=== PATIENT | female | born 1930 | race Caucasian/White ===

== ENCOUNTER 2018-09-13 13:09 | Emergency (ER) | payer MEDICARE, BC ==
--- OUTSIDE RECORDS SUMMARY | 2018-09-13 13:25 | XMS REPORT | Continuity of Care Document ---
:1930 External Reference #:[id number] Author Name JarrodJohn Care Team Providers Name Role Phone Isac Wright MD Primary Care Physician Unavailable Payers Date Identification Numbers Payment Provider Subscriber Effective: 1996 Policy Number: [id number] Medicare Tamy Ta PayID: [id number] [address] [place] [address] Effective: 2011 Policy Number: [id number] [employer]ets Tamy Ta PayID: [id number] [address] [address] [place] [address] Advance Directives Description No Information Available Problems Date Description Provider Status Onset: 11/02/2014 Headache Daily Tate M.D. Active Onset: 11/02/2014 Essential tremor Daily Tate M.D. Active Onset: 11/02/2014 Anxiety Daily Tate M.D. Active Onset: 09/14/2016 Unsteady gait Daily Tate M.D. Active Family History Date Family Member(s) Observation Comments General Cancer General Diabetes Father Cancer metastatic at diagnosis, ? type: age 69 Father due to Cancer () Mother Cancer colon - age 80 Mother due to Cancer () Siblings 1 age 92 Social History Type Date Description Comments Sex Unknown Marital Status Lives With Son Occupation Retired Tobacco Use Start: Unknown Never Smoked Cigarettes Smoking Status Reviewed: 09/13/18 Never Smoked Cigarettes ETOH Use Rarely consumes alcohol Tobacco Use Start: Unknown Patient has never smoked Recreational Drug Use Denies Drug Use Exercise Type/Frequency Exercises rarely Allergies, Adverse Reactions, Alerts Date Description Reaction Status Severity Comments 03/30/2014 Levaquin Urticaria Active 02/08/2015 Depakote Active Medications Medication Date Status Form Strength Qnty SIG Indications Ordering Provider Sertraline HCL 06/14 Active Tablets 50mg 30tab 1 by mouth F41.9 Elida s every day Juliet Lopez Atorvastatin Active Tablets 20mg 1 po qd Unknown Calcium /0000 Humalog Kwikpen Active Solution 100Unit/M As Andreea, /0000 Pen-Inject L directed, bar Chaney DO scale.. Lantus Solostar Active Solution 100Unit/M 20 units Andreea, /0000 Pen-Inject L at night DO Ritu Centrum Silver Active Tablets 1 by mouth Unknown /0000 every day Irbesartan Active Tablets 75mg 90tab 2 by mouth Unknown /0000 s every morning Amoxicillin Active Capsules 500mg 4 tablets Unknown /0000 1 hour before dental work Anoro Ellipta Active Aerosol 62.5-25mc 60uni 1 Unknown /0000 g/Inh ts inhalation daily Acetaminophen Active Tablets 500mg 2 tabs 3x Unknown /0000 a day as needed Eliquis Active Tablets 2.5mg 1 tablet Unknown /0000 by mouth twice a day. blood thinner. Vitamin D3 Adult Active Chewtabs 1000Unit 3 tabs Unknown Gummies /0000 daily Savision Active Capsules daily by Unknown /0000 mouth Glucose Active Chewtabs 4gm 2 chewtabs Unknown /0000 as needed hypoglycem ia Refresh Tears Active Solution 0.5% 3-4times Unknown /0000 daily as needed Systane Active Solution 0.4-0.3% apply Unknown /0000 twice daily as needed for dry eyes Sertraline HCL 03/29 Hx Tablets 25mg 30tab take 1 by F41.9 s mouth each John, - day M.D. 06/14 Sustane 06/21 Hx aplies to Daily . both eyes Bebeto, - at M.D. 02/20 bedtime. Clonazepam 05/17 Hx Tablets 0.5mg 60tab 1/2-1 tab R42 Daily Jimenez s by mouth Bebeto, - twice a M.D. 09/27 day directed Fluticasone 02/08 Hx Suspension 50mcg/Act 16gm 2 spray 784.0 Winnie each SYL Powell - nostril 04/16 Zonisamide 01/08 Hx Capsules 25mg 120ca 1-4 caps Daily Chi[place] ps by mouth Bebeto, - every M.D. 04/21 night directed Divalproex Sodium 11/[address] 250mg 90tab Patient is Daily Jimenez s currently Bebeto, - weaning M.D. 11/01 herself off medication due to hair loss.. Propranolol HCL 05/23 Hx Tablets 10mg 120ta Take Two Daily Jimenez bs Tablets By Bebeto, - Mouth M.D. 09/13 Morning, 1 Tablet AT Noon And 1 Tablet AT Dinner Selegiline HCL 02/08 Hx Tablets 5mg 180ta 1 tab by Daily Jimenez bs mouth Bebeto, - every M.D. 05/23 and at noon Carbidopa/Levodop 01/03 Hx Tablets 25-100mg 60tab 1/2 tab by Daily hatch han mouth Bebeto, - 2-3x/day M.D. 05/23 directed Divalproex Sodium 10/[address] 250mg 90tab 2-[address] s po qhs shelbi Tate, - directed M.D. 11/09 Selegiline HCL 10/04 Hx Capsules 5mg 60cap 1 cap by Elida s mouth q am John, - and noon M.D. 05/23 Lisinopril Hx Tablets 10mg 1 po qd - 11/30 Multaq Hx Tablets 400mg 1 po bid - 06/20 Warfarin Sodium Hx Tablets 2.5mg take 1 tab Unknown on - Wed,09/06 day,wednesday and 2 tabs on thee other days Diltiazem HCL ER 00 Hx Caps ER 120mg 1 po qd Unknown Coated 24HR - 04/21 Furosemide 00 Hx Tablets 20mg 1 po bid Unknown /0000 - 06/20 [address] 40mg 1 po qd.. Unknown /0000 - 11/30 Hydrochlorothiazi 00 Hx Tablets 12.5mg 90tab 1 by mouth Unknown de /0000 s every day - 11/01 Calcium 600+D 00 Hx Tablets 600-400mg 60tab 1 by mouth Unknown High Potency /0000 -Unit s qd - 11/01 Savision 00 Hx Tablets 1 by mouth Unknown /0000 every day - 09/13 Prolia Hx Solution 60mg/ml 60 mg sc Unknown /0000 [id number] - nt know if 12/27 she want to do this anymore Vitamin D 00 Hx Tablets 400Unit every day Unknown /0000 by mouth - 11/30 Diltiazem HCL 00 Hx Tablets 120mg 90tab 1 by mouth Unknown /0000 s every day - 06/20 Sucralfate Hx Tablets 1gm 1 by mouth Unknown /0000 two times - a day 09/13 Zonisamide 00 Hx Capsules 25mg 60cap Take One Daily M. /0000 s Capsule By Bebeto, - Mouth M.D. 09/13 Twice A Day Digoxin Hx Tablets 125mcg 1 by mouth Unknown /0000 every day - 06/20 Vitamin D 00 Hx Capsules [id number] 14cap take one Unknown (Ergocalciferol) /0000 s capsule by - mouth once 12/27 Ellipta 00/00 Hx Inhaler 1 Unknown /0000 inhalation - daily prn 12/20 Preservision 0000 Hx Capsules Areds 2 take one Unknown Areds 2 /0000 cap in the - and 12/20 one cap in the evening Anoro Ellipta 00/00 Hx Aerosol 62.5-25mc 1 Unknown /0000 g/Inh inhalation - daily 07/07 Furosemide 00 Hx Tablets 40mg 1 by mouth Unknown /0000 every - day(patien 09/06 t she takes when she doesn't have to leave her house for appointmen ts) Anoro Ellipta 00/00 Hx Aerosol 62.5-25mc 1 time Hoskins, /0000 g/Inh daily Xavier Cuba MD 03/23 Immunizations Description No Information Available Vital Signs Date Vital Result Comment 09/13/2018 11:04am Height 59.75 inches 4'11.75" Weight 150.00 lb Heart Rate 66 /min BP Systolic Sitting 158 mmHg BP Diastolic Sitting 84 mmHg Respiratory Rate 16 /min Pain Level 10 BMI (Body Mass Index) 29.5 kg/m2 07/05/2018 2:30pm Height 59.75 inches 4'11.75" Weight 158.38 lb Heart Rate 76 /min BP Systolic Sitting 138 mmHg R BP Diastolic Sitting 76 mmHg R Respiratory Rate 18 /min O2 % BldC Oximetry 97 % BMI (Body Mass Index) 31.2 kg/m2 03/29/2018 10:06am Height 59.75 inches 4'11.75" Weight 153.00 lb Heart Rate 68 /min BP Systolic Sitting 122 mmHg BP Diastolic Sitting 74 mmHg Respiratory Rate 16 /min Pain Level 8 feet and back pain. O2 % BldC Oximetry 99 % ra BMI (Body Mass Index) 30.1 kg/m2 03/08/2018 10:41am Height 59.75 inches 4'11.75" Weight 154.12 lb Heart Rate 70 /min BP Systolic Sitting 158 mmHg BP Diastolic Sitting 84 mmHg Respiratory Rate 20 /min O2 % BldC Oximetry 98 % BMI (Body Mass Index) 30.3 kg/m2 01/04/2018 12:58pm Height 59.75 inches 4'11.75" Weight 150.12 lb Heart Rate 76 /min BP Systolic Sitting 120 mmHg BP Diastolic Sitting 78 mmHg Respiratory Rate 18 /min O2 % BldC Oximetry 99 % BMI (Body Mass Index) 29.6 kg/m2 09/28/2017 4:45pm Height 59.75 inches 4'11.75" Weight 142.00 lb Heart Rate 71 /min BP Systolic Sitting 142 mmHg BP Diastolic Sitting 76 mmHg Respiratory Rate 17 /min Pain Level 7 headache pain O2 % BldC Oximetry 98 % ra BMI (Body Mass Index) 28.0 kg/m2 07/09/2017 12:16pm Height 59.75 inches 4'11.75" Weight 133.00 lb Heart Rate 77 /min BP Systolic Sitting 126 mmHg BP Diastolic Sitting 78 mmHg Respiratory Rate 16 /min O2 % BldC Oximetry 99 % Ra BMI (Body Mass Index) 26.2 kg/m2 05/17/2017 11:42am Height 61 inches 5'1" Weight 150.00 lb Heart Rate 102 /min BP Systolic Sitting 142 mmHg BP Diastolic Sitting 80 mmHg Respiratory Rate 18 /min O2 % BldC Oximetry 97 % BMI (Body Mass Index) 28.3 kg/m2 09/14/2016 3:41pm Height 61 inches 5'1" Weight 143.00 lb Heart Rate 72 /min BP Systolic Sitting 140 mmHg BP Diastolic Sitting 78 mmHg Respiratory Rate 20 /min Pain Level 0 O2 % BldC Oximetry 97 % BMI (Body Mass Index) 27.0 kg/m2 12/02/2015 11:50am Height 61 inches 5'1" Weight 159.00 lb Heart Rate 68 /min BP Systolic 136 mmHg BP Diastolic 82 mmHg Respiratory Rate 14 /min BMI (Body Mass Index) 30.0 kg/m2 07/08/2015 2:19pm Height 61 inches 5'1" Weight 163.00 lb Heart Rate 78 /min BP Systolic Sitting 130 mmHg BP Diastolic Sitting 70 mmHg Respiratory Rate 16 /min BMI (Body Mass Index) 30.8 kg/m2 04/22/2015 2:17pm Height 61 inches 5'1" Weight 163.00 lb Heart Rate 68 /min BP Systolic Sitting 136 mmHg BP Diastolic Sitting 78 mmHg Respiratory Rate 14 /min BMI (Body Mass Index) 30.8 kg/m2 02/08/2015 2:51pm Height 61 inches 5'1" Weight 161.00 lb Heart Rate 64 /min BP Systolic Sitting 110 mmHg BP Diastolic Sitting 70 mmHg Respiratory Rate 16 /min BMI (Body Mass Index) 30.4 kg/m2 11/02/2014 10:59am Height 61 inches 5'1" Weight 163.00 lb Heart Rate 64 /min BP Systolic Sitting 122 mmHg BP Diastolic Sitting 66 mmHg BMI (Body Mass Index) 30.8 kg/m2 03/30/2014 11:32am Weight 163.00 lb Heart Rate 73 /min BP Systolic Sitting 126 mmHg BP Diastolic Sitting 70 mmHg Respiratory Rate 14 /min Results Test Date Facility Test Result H/L Range Note Paraneoplastic [facility] Paraneoplastic Ab See Comment 1 Evaluation [address] [place] [address] [phone] Anti-Neuronal Nuclear Ab Type1 Negative titer <1:240 Reflex Added None. 2 Anti-Neuronal Nuclear Ab Type2 Negative titer <1:240 3 Anti-Neuronal Nuclear Ab Type3 Negative titer <1:240 4 Anti-Glial/Neuronal Nuc Ab-1 A Negative titer <1:240 5 Purkinje Cell Cytoplasm Type 1 Negative titer <1:240 6 Purkinje Cell Cytoplasm Type 2 Negative titer <1:240 7 Purkinje Cell Cytoplasm Typ Tr Negative titer <1:240 8 Amphiphysin Antibody Negative titer <1:240 9 CRMP-5 IgG Antibody Negative titer <1:240 10 Anti-Striated Muscle Antibody Negative titer <1:120 11 Calcium Channel Binding Ab P/Q 0.00 nmol/L <=0.02 12 N Type Calcium Channel Binding 0.00 nmol/L <=0.03 13 ACh Receptor Muscle Binding Ab 0.00 nmol/L <=0.02 14 AChR Ganglionic Neuronal Ab 0.00 nmol/L <=0.02 15 Voltage-Gated Potassium Chann 0.00 nmol/L <=0.02 16 Laboratory test 12/28/2014 [facility] Erythrocyte Sed 23 mm/Hr N 0-[address] [place] [address] [phone] Laboratory test 11/02/2014 [facility] Erythrocyte Sed 24 mm/Hr N 0-[address] [place] [address] [phone] 1 No informative autoantibodies were detected in the Paraneoplastic Evaluation. However, a negative result does not exclude neurological autoimmunity with or without associated neoplasia. Sensitivity and specificity of antibody testing are enhanced by testing both serum and CSF. 2 ADDITIONAL INFORMATION This test was developed and its performance characteristics determined by [facility] in a manner consistent with CLIA requirements. This test has not been cleared or approved by the U.S. Food and Drug Administration. 3 ADDITIONAL INFORMATION This test was developed and its performance characteristics determined by [facility] in a manner consistent with CLIA requirements. This test has not been cleared or approved by the U.S. Food and Drug Administration. 4 ADDITIONAL INFORMATION This test was developed and its performance characteristics determined by [facility] in a manner consistent with CLIA requirements. This test has not been cleared or approved by the U.S. Food and Drug Administration. 5 ADDITIONAL INFORMATION This test was developed and its performance characteristics determined by [facility] in a manner consistent with CLIA requirements. This test has not been cleared or approved by the U.S. Food and Drug Administration. 6 ADDITIONAL INFORMATION This test was developed and its performance characteristics determined by [facility] in a manner consistent with CLIA requirements. This test has not been cleared or approved by the U.S. Food and Drug Administration. 7 ADDITIONAL INFORMATION This test was developed and its performance characteristics determined by [facility] in a manner consistent with CLIA requirements. This test has not been cleared or approved by the U.S. Food and Drug Administration. 8 ADDITIONAL INFORMATION This test was developed and its performance characteristics determined by [facility] in a manner consistent with CLIA requirements. This test has not been cleared or approved by the U.S. Food and Drug Administration. 9 ADDITIONAL INFORMATION This test was developed and its performance characteristics determined by [facility] in a manner consistent with CLIA requirements. This test has not been cleared or approved by the U.S. Food and Drug Administration. 10 ADDITIONAL INFORMATION This test was developed and its performance characteristics determined by [facility] in a manner consistent with CLIA requirements. This test has not been cleared or approved by the U.S. Food and Drug Administration. 11 ADDITIONAL INFORMATION This test was developed and its performance characteristics determined by [facility] in a manner consistent with CLIA requirements. This test has not been cleared or approved by the U.S. Food and Drug Administration. 12 ADDITIONAL INFORMATION This test was developed and its performance characteristics determined by [facility] in a manner consistent with CLIA requirements. This test has not been cleared or approved by the U.S. Food and Drug Administration. 13 ADDITIONAL INFORMATION This test was developed and its performance characteristics determined by [facility] in a manner consistent with CLIA requirements. This test has not been cleared or approved by the U.S. Food and Drug Administration. 14 ADDITIONAL INFORMATION This test was developed and its performance characteristics determined by [facility] in a manner consistent with CLIA requirements. This test has not been cleared or approved by the U.S. Food and Drug Administration. 15 ADDITIONAL INFORMATION This test was developed and its performance characteristics determined by [facility] in a manner consistent with CLIA requirements. This test has not been cleared or approved by the U.S. Food and Drug Administration. 16 ADDITIONAL INFORMATION This test was developed and its performance characteristics determined by [facility] in a manner consistent with CLIA requirements. This test has not been cleared or approved by the U.S. Food and Drug Administration. Test Performed by: [address] [id number] Procedures Date Code Description Status 03/18/2018 25344 EEG Recording Awake & Drowsy Completed 01/04/2018 13276 Nerve Conduction 03-04 Studies Completed 01/04/2018 05636 Needle Electromyography Each Extremity W/Related Completed Paraspinal Areas 04/13/2017 [id number] Diabetic Retinal Eye Exam Completed Encounters Type Date Location Provider Dx Diagnosis Office Visit 07/05/2018 Teresa Lopez, Dominguez6.81 Unsteadiness on 3:00p [facility] feet Review Specialist R42 Dizziness and giddiness G31.84 Mild cognitive impairment, so stated F41.9 Anxiety disorder, unspecified R51 Headache Office Visit 03/29/2018 Teresa Marrero R26.81 Unsteadiness on 10:00a [facility] Lopez feet Review Specialist R42 Dizziness and giddiness G31.84 Mild cognitive impairment, so stated R51 Headache F41.9 Anxiety disorder, unspecified Z86.79 Personal history of other diseases of the circulatory system Office Visit 03/08/2018 Teresa Marrero R26.81 Unsteadiness on 11:00a [facility] Lopez feet Review Specialist R42 Dizziness and giddiness R47.01 Aphasia G31.84 Mild cognitive impairment, so stated R51 Headache M25.561 Pain in right knee F41.9 Anxiety disorder, unspecified Z86.79 Personal history of other diseases of the circulatory system I10 Essential (primary) hypertension Office Visit 09/28/2017 Teresa Marrero R26.81 Unsteadiness on 4:30p [facility] Lopez feet Review Specialist 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, intraventricular R42 Dizziness and giddiness H53.2 Diplopia Office Visit 07/09/2017 Teresa Jimenez R26.81 Unsteadiness on 12:00p [facility] Juliet Tate feet Review Specialist G25.0 Essential tremor M54.5 Low back pain R51 Headache Office Visit 05/17/2017 11:45a Isiah/Lalo Tate, R51 Headache [facility] Chung R26.81 Unsteadiness on feet G25.0 Essential tremor R42 Dizziness and giddiness Office Visit 09/14/2016 3:15p Isiah/Lalo Tate, R51 Headache [facility] Chung R26.81 Unsteadiness on feet Office Visit 12/02/2015 11:45a Isiah/Lalo Tate, R51 Headache [facility] Chung G25.0 Essential tremor Office Visit 07/08/2015 2:15p Isiah/Lalo aTte, R51 Headache [facility] Chung G25.0 Essential tremor Office Visit 04/22/2015 2:15p Isiah/Lalo Jimenez R51 Headache [facility] Tate M.D. Office Visit 02/08/2015 3:00p Isiah/Lalo Jimenez 784.0 Headache [facility]i Tate M.D. 333.1 Tremor Essential & Other Forms Office Visit 11/02/2014 Teresa Jimenez 333.1 Tremor 11:00a [facility] Juliet Tate Essential & Beti Other Forms 784.0 Headache 300.00 Anxiety State Unspec Office Visit 03/30/2014 Teresa Jimenez 333.1 Tremor 11:45a [facility] Tate Essential & Review Specialist Other Forms 346.90 Migraine Unspec W/O Intractable W/O Status Migrainosus 427.31 Atrial Fibrillation Office Visit 08/21/2013 Teresa Jimenez 346.90 Migraine Unspec 11:45a [facility] Tate W/O Intractable Review Specialist W/O Status Migrainosus 333.1 Tremor Essential & Other Forms Office Visit 05/23/2013 Teresa Jimenez 333.1 Tremor 10:15a [facility] Juliet Tate Essential & Review Specialist Other Forms 784.0 Headache 781.2 Gait Abnormality Office Visit 02/08/2013 [place] 333.1 Tremor 10:00a [facility] Tate Essential & [facility] Other Forms 784.0 Headache Office Visit 11/07/2012 [place] Jim[place] 332.0 Paralysis 12:00p [facility] Tate Agitans Beti 784.0 Headache Office Visit 10/04/2012 11:15a [place] Jimenez 784.0 Headache [facility] Tate M.D. 780.57 Unspecified Sleep Apnea 333.1 Tremor Essential & Other Forms Office Visit 04/18/2012 9:30a [place] Jimenez 784.0 Headache [facility] Tate M.D. 780.57 Unspecified Sleep Apnea Plan of Treatment Future Appointment(s):11/08/2018 1:30 pm - Elida Lopez M.D. at [facility]09/13/2018 - Elida Lopez M.D.R29.6 Repeated fallsNew Xrays:CT Brain Wo, Ordered: 09/13/18Follow up:keep october visit.Recommendations:Will look for bleeding in the brain. It is essential that you use a walker at all times.R51 HeadacheNew Xrays:CT Brain Wo, Ordered: 09/13/18R42 Dizziness and giddinessRecommendations:Must walk with walker at all times. No driving.G31.84 Mild cognitive impairment, so statedRecommendations: You need supervision at home for meds and for prevention of falls. Office of Aging may give you someideas on resources. Work with your primary care regarding your back pain, and potential for VNS (with difficulty with medications, and home assessment)F41.9 Anxiety disorder, unspecifiedRecommendations:Increase sertraline to 100mg (can use 2 of the 50mg pills, and will send in new script for 100mg). This is to try to help with mood in the setting of loss, and cognition.
[2018-09-13] MEDS ORDERED: Acetaminophen TAB* 325 MG PO ONE (14:34)
--- NOTE | 2018-09-13 15:14 | UC ---
General HPI - HPI Summary HPI Summary: per pt and her family at the bedside, pt has a chronic issue with her balance. yesterday, she lost her balance and fell backwards landing first on her buttock then back and hit the back of her head on a tile floor. she denies any LOC, neck pain and headache. she is c/o pain which she decribes as "spasms" with movement in her middle and lower back. she saw her neurologist who preformed an exam and ordered an out pt CT brain which was negative. pt's neurologist advised they come here for imaging of her back. - History of Current Complaint Chief Complaint: UCLowerExtremity Stated Complaint: S/P FALL BACK PAIN Time Seen by Provider: 09/13/18 14:50 Hx Obtained From: Patient, Family/[employer] Onset/Duration: Sudden Onset Pain Intensity: 12 Associated Signs & Symptoms: Positive: Back Pain. Negative: Chest Pain, Headache, Nausea, Vomiting - Allergy/Home Medications Allergies/Adverse Reactions: Allergies Allergy/AdvReac Type Severity Reaction Status Date / Time levofloxacin [From Levaquin] Allergy Rash Verified 09/13/18 14:05 [facility] -PACEMAKER - NOT Allergy BIOTRONIK Uncoded 03/09/18 12:21 [facility] APPR -PACEMAKER - NOT [facility] APPROVED Home Medications: Home Medications Apixaban* [Eliquis*] 2.5 mg PO BID 09/13/18 [History Confirmed 09/13/18] Atorvastatin* [Lipitor*] 20 mg PO DAILY 09/13/18 [History Confirmed 09/13/18] Cholecalciferol (Vitamin D3) [ Vitamin D3] 1,000 unit PO DAILY 09/13/18 [ History Confirmed 09/13/18] Insulin Glargine,Hum.rec.anlog [Lantus Solostar] 20 unit SQ BEDTIME 09/13/18 [ History Confirmed 09/13/18] Insulin LISPRO* [HumaLOG*] 0 units SUBCUT DIRECTED PRN 09/13/18 [History Confirmed 09/13/18] Irbesartan [Avapro] 150 mg PO DAILY 09/13/18 [History Confirmed 09/13/18] Polyvinyl Alcohol/Povidone/Pf [Refresh Classic Eye Drops] 1 drop BOTH EYES TID 09/13/18 [History Confirmed 09/13/18] Sertraline* [Zoloft*] 50 mg PO DAILY 09/13/18 [History Confirmed 09/13/18] Umeclidin/Vilant 62.5 MDI(NF) [ANORO 62.5/25 Ellipta DEVICE (NF)] 1 inh INH BEDTIME 09/13/18 [History Confirmed 09/13/18] PMH/Surg Hx/FS Hx/Imm Hx Endocrine History: Diabetes, Dyslipidemia Cardiovascular History: Atrial Fibrillation Psychological History: Depression - Surgical History Surgical History: Yes Surgery Procedure, Year, and Place: lt knee surgery. cataracts - Social History Alcohol Use: None Substance Use Type: None Smoking Status (MU): Never Smoked Tobacco Review of Systems All Other Systems Reviewed And Are Negative: Yes Constitutional: Positive: Negative Skin: Positive: Negative Eyes: Positive: Negative ENT: Positive: Negative Respiratory: Positive: Negative Cardiovascular: Positive: Negative Gastrointestinal: Positive: Negative Genitourinary: Positive: Negative Motor: Positive: Negative Neurovascular: Positive: Negative Neurological: Positive: Negative Psychological: Positive: Negative Physical Exam Triage Information Reviewed: Yes Appearance: Well-Appearing Vital Signs: Initial Vital Signs Temp 97.4 F 09/13/18 14:03 Pulse 69 09/13/18 14:03 Resp 16 09/13/18 14:03 BP 175/55 09/13/18 14:03 Pulse Ox 100 09/13/18 14:03 Vital Signs Reviewed: Yes Eyes: Positive: Conjunctiva Clear, Other: - Pupils s/p cataract surgery, EOMI. ENT: Positive: Pharynx normal, TMs normal - no blood, Other - hearing aides removed for exam then return immediately to pt ears by the pt.. Negative: Nasal congestion, Nasal drainage Neck: Positive: Supple, Nontender, No Lymphadenopathy, Other: - c-spine is non tender. Respiratory: Positive: Chest non-tender, Lungs clear, Normal breath sounds Cardiovascular: Positive: RRR, No Murmur, Other: - No afib on exam. Negative: Tachycardia Abdomen Description: Positive: Nontender, No Organomegaly, Soft Bowel Sounds: Positive: Present Musculoskeletal: Positive: Other: - Head: mild swelling and purple bruising with small central abrasion to back of head. No step off or instability. C- spine non tender. Thoracic to lumbar spine and paraspinal mm's tender but no step off. Pelvis, hips and BUE"s/BLE's with NO deformity or tenderness. Neurological: Positive: Other: - A&Ox3. CN grossly intact. 5/5 strength, 2+ reflexes and sensation intact x4. Psychological: Positive: Normal Response To Family, Age Appropriate Behavior Skin Exam: Normal Diagnostics - Radiology No standard instances Radiology Interpretation Completed By: Radiologist - out pt ct brain=IMPRESSION : Atrophy. No intracranial mass or hemorrhage is noted. Posterior scalp hematoma is noted. LS spine=IMPRESSION: 1. MODERATE TO SEVERE COMPRESSION FRACTURE OF THE T11 VERTEBRAL BODY, NEW FROM THE PRIOR STUDY ALTHOUGH AGE INDETERMINATE. 2. 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 ct thoracic spine=MPRESSION: ACUTE TO SUBACUTE MODERATE COMPRESSION FRACTURE OF THE T11 VERTEBRAL BODY WITH MILD RETROPULSION OF FRACTURE FRAGMENTS INTO THE ANTERIOR SPINAL CANAL CAUSING MILD TO MODERATE SPINAL CANAL NARROWING. Re-Evaluation - Re-Evaluation First Eval Re-Evaluation Time: 18:15 Change: Unchanged - S/V/M INTACT X4. Course/Dx - Course Course Of Treatment: additional pain medications declined at timje of exam. call placed to Dr Prather, [facility] [place] neurosurgery. I advised of pt hx, PE and CT report of T spine with a T11 compression fracture. I read him the entire report. I also advised him that the pt is on Eliquis. he states that at this age and hx of DM that he would do nothing. he states that this will heal on its own. i questioned him about steroids, he stated not needed. i asked when pt should f/u with him, he advised that she does not need to see him and again stated this will heal on its own. a copy or CT and reports sent home with pt. they have been advised to f/u with the pcp in am and go directly to the eR for any worsening. - Differential Dx - Multi-Symptom Differential Diagnoses: Other - fx/compression, strain. no concern for infection , acute abdomen or cauda equina. - Diagnoses Provider Diagnosis: Compression fracture of T11 vertebra Discharge - Sign-Out/Discharge Documenting (check all that apply): Patient Departure All imaging exams completed and their final reports reviewed: Yes - Discharge Plan Condition: Stable Disposition: HOME Patient Education Materials: Vertebral Compression Fracture (ED) Referrals: Isac Wright MD [Primary Care Provider] - 1 Day Additional Instructions: GO TO THE ER FOR ANY WORSENING - Billing Disposition and Condition Condition: STABLE Disposition: Home - Attestation Statements Provider Attestation: Per institutional requirements, I have reviewed the chart, however, I was not consulted specifically or made aware of this patient by the midlevel provider. I did not personally evaluate, interact with , or disposition this patient.
[2018-09-13 15:56] VITALS: BP 147/79
== END 2018-09-13 18:31 | disposition home or self-care (01) ==
LOC: UCCORT 13:09
DX: S22.089A Unspecified fracture of T11-T12 vertebra, initial encounter for closed fracture (principal); E11.9 Type 2 diabetes mellitus without complications; E78.5 Hyperlipidemia, unspecified; F32.9 Major depressive disorder, single episode, unspecified; I48.91 Unspecified atrial fibrillation; Z79.01 Long term (current) use of anticoagulants; Z79.4 Long term (current) use of insulin; Z88.8 Allergy status to other drugs, medicaments and biological substances; Z91.09 Other allergy status, other than to drugs and biological substances; Z79.899 Other long term (current) drug therapy; W19.XXXA Unspecified fall, initial encounter; Y92.9 Unspecified place or not applicable
CPT/HCPCS: 72070; 72110; 72128; 99212; A9270-GY; G0463